=== PATIENT | male | born 2005 | race Caucasian/White ===

== ENCOUNTER 2024-02-04 11:12 | Emergency (ER) | payer OTHER ==
[~2024-02-04] VITALS: Ht 185.4 cm; Wt 64.8 kg
[2024-02-04] MEDS ORDERED: FLUORESCEIN SOD 1 EA STRP OD ONE (11:45)
[2024-02-04] MEDS ORDERED: TETRACAINE HCL 0.5% 4 ML BTL OD ONE (11:45)
[2024-02-04] MEDS ORDERED: TOBRAMYCIN5 ML OPTH (11:46)
[2024-02-04 11:55] VITALS: BP 115/67
== END 2024-02-04 11:55 | disposition home or self-care (01) ==
LOC: ED 11:12
DX: S05.01XA Injury of conjunctiva and corneal abrasion without foreign body, right eye, initial encounter (principal); X58.XXXA Exposure to other specified factors, initial encounter; J45.909 Unspecified asthma, uncomplicated
CPT/HCPCS: 99283